=== PATIENT | male | born 1945 | race Caucasian/White ===

== ENCOUNTER 2017-01-02 22:22 | Emergency (ER) | payer MEDICARE, OTHER ==
[~2017-01-02] VITALS: Ht 188 cm; Wt 99.1 kg
[~2017-01-02 22:22] MED LIST: ADVAIR 250/28 DISKU1 IH; ALLEGRA60 M1 PO; ATIVAN 0.50.5 MG/TAB; ATIVAN 0.50.5 MG/TAB PO; ATIVAN 2MG2 MG PO; BENADRYL25 M1 PO; CELEXA10 MG; COMBIVENT INH14.7 GM IH; DULERA1 AR1; ESCITALOPRAM; FLOMAX 0.40.4 MG/CAP; FLOMAX 0.40.4 MG/CAP PO; FLONASE0.05 MG/AC NS; FORADIL IH; HCTZ 25MG25 MG PO; HYTRIN 1MG C1 MG/CAP; HYTRIN10 M1 PO; IPRATROPIUM BROM3 M1 IH; LEXAPRO 10MG10 MG PO; LEXAPRO10 MG PO; LORTAB 5/500 501 TAB PO; NORCO 325 MG-101 TAB PO; NORCO 325 MG-51 TAB; OMNARIS50 MCG/Act; OMNARIS50 MCG/Act NS; PREDNISONE10 MG PO; PREDNISONE20 MG; PRILOSEC 20MG20 MG PO; PROAIR HFA0.09 MG/AC IH; RT SPIRIVA18 MCG; SEPTRA DS 8001 TAB; SEPTRA DS 8001 TAB PO; SINGULAIR 110 MG/TAB; SINGULAIR10 MG PO; SPIRIVA18 MCG IH; TERAZOSIN HCL PO; UNABLE; VICODIN 5/5001 UDTAB PO; ZANTAC150 MG PO
[2017-01-02 22:26] VITALS: BP 148/88
[2017-01-02] MEDS ORDERED: DULCOLAX S10 MG/SUPP RC (23:12)
[2017-01-02] MEDS ORDERED: 00186-0370-20 IH (23:12)
[2017-01-02] MEDS ORDERED: [UNRECOGNIZED DRUG - OTHER] OU (23:14)
[2017-01-02] MEDS ORDERED: VITAMIN D 1001000 IU PO (23:14)
[2017-01-02] MEDS ORDERED: VOLTAREN GEL 1%1 TU TP (23:15)
[2017-01-02] MEDS ORDERED: TAZTIA120 PO (23:18)
[2017-01-02] MEDS ORDERED: SENOKOT S 50 MG1 TAB PO (23:19)
[2017-01-02] MEDS ORDERED: CYMBALTA 30MG30 MG PO (23:20)
[2017-01-02] MEDS ORDERED: FLONASEALLERGY NS (23:21)
[2017-01-02] MEDS ORDERED: ATIVAN2 MG PO (23:22)
[2017-01-02] MEDS ORDERED: PROTONIX 40MG T40 MG PO (23:23)
[2017-01-02] MEDS ORDERED: NARCAN4 MG NS (23:23)
[2017-01-02] MEDS ORDERED: CRESTOR20 MG PO (23:24)
[2017-01-02] MEDS ORDERED: FLOMAX 0.40.4 MG/CAP PO ×2 (23:25→23:52)
[2017-01-02 23:27] LABS: PH 7 (5-8); URINE APPEARANCE Clear; URINE BILIRUBIN Negative (NEGATIVE); URINE BLOOD Negative (NEGATIVE); URINE COLOR Yellow; URINE GLUCOSE Negative (NEGATIVE); URINE KETONE Negative (NEGATIVE); URINE UROBILINOGEN Negative (NEGATIVE)
[2017-01-02] MEDS ORDERED: SPIRIVA RE2.5 MCG/Ac IH (23:29)
[2017-01-02] MEDS ORDERED: DETROL LA4 PO (23:30)
[2017-01-02] MEDS ORDERED: NORCO 325 MG-101 TAB PO (23:32)
[2017-01-02] MEDS ORDERED: PROSCAR 5MG5 MG PO (23:32)
[2017-01-02 23:33] LABS: BASO % 0.4 % (0.0-2.0); EOS # 0.1 (0.0-0.7); EOS % 0.6 % (0-4.0); GRAN # 4.6 (1.4-6.5); LYMPH # 3.1 (1.2-3.4); LYMPH % 36.2 % (20.0-51.0); MEAN CELL VOLUME 88 fl (80.0-100.0); MEAN CORPUSCULAR HEMOGLOBIN 32 pg (27.0-31.0); MEAN CORPUSCULAR HGB CONC 36 g/dl (33.0-37.0); MONO # 0.7 (0.1-0.6); MONO % 8.7 % (1.7-9.3); PLATELET COUNT 237 K/mm3 (130-400); REDCELL DISTRIBUTION WIDTH-CV 12.5 % (11.5-14.5); WHITE BLOOD COUNT 8.5 K/mm3 (4.8-10.8)
[2017-01-02] MEDS ORDERED: HCTZ 25MG TAB25 MG PO (23:33)
[2017-01-02 23:34] LABS: SQUAMOUS EPITHELIAL 0-2 /hpf; URINE RBC None Seen /hpf; URINE WBC None Seen /hpf
[2017-01-02 23:36] LABS: HEMATOCRIT 36.2 % (42.0-52.0)
[2017-01-02 23:53] LABS: ADJUSTED CALCIUM 8.6 mg/dL (8.4-10.2); ALBUMIN 4.1 gm/dL (3.5-5.0); CALCIUM 8.7 mg/dL (8.4-10.2); CREATININE, serum 1.06 mg/dL (0.66-1.25); POTASSIUM 3.1 mmol/L (3.4-5.0); TOTAL PROTEIN 6.7 gm/dL (6.4-8.2)
[2017-01-02 23:54] VITALS: TEMP 98.4
[2017-01-03] VITALS: PULSE 68
== END 2017-01-03 00:04 | disposition home or self-care (01) ==
LOC: COL.ER 22:22
PROVIDERS: Emergency Medicine
DX: N40.1 Benign prostatic hyperplasia with lower urinary tract symptoms (principal); N13.8 Other obstructive and reflux uropathy; J44.9 Chronic obstructive pulmonary disease, unspecified; I10 Essential (primary) hypertension; F41.9 Anxiety disorder, unspecified; F32.9 Major depressive disorder, single episode, unspecified

== ENCOUNTER 2017-12-09 20:20 | Emergency (ER) | payer OTHER ==
[~2017-12-09] VITALS: Ht 188 cm; Wt 99.6 kg
[~2017-12-09 20:20] MED LIST changes: +00186-0370-20 IH; +ATIVAN2 MG PO; +CRESTOR20 MG PO; +CYMBALTA 30MG30 MG PO; +DETROL LA4 PO; +DULCOLAX S10 MG/SUPP RC; +FLONASEALLERGY NS; +HCTZ 25MG TAB25 MG PO; +NARCAN4 MG NS; +PROSCAR 5MG5 MG PO; +PROTONIX 40MG T40 MG PO; +SENOKOT S 50 MG1 TAB PO; +SPIRIVA RE2.5 MCG/Ac IH; +TAZTIA120 PO; +VITAMIN D 1001000 IU PO; +VOLTAREN GEL 1%1 TU TP; +[UNRECOGNIZED DRUG - OTHER] OU
[2017-12-09 20:30] VITALS: TEMP 98.2
[2017-12-09 21:52] VITALS: BP 173/90; PULSE 84
== END 2017-12-09 21:52 | disposition home or self-care (01) ==
LOC: COL.ER 20:20
DX: I10 Essential (primary) hypertension (principal); F43.10 Post-traumatic stress disorder, unspecified; Z87.891 Personal history of nicotine dependence; Z98.890 Other specified postprocedural states

== ENCOUNTER 2018-06-30 15:02 | Emergency (ER) | payer OTHER ==
[~2018-06-30] VITALS: Ht 188 cm; Wt 100.0 kg
[2018-06-30 15:21] VITALS: TEMP 97.6
[2018-06-30 17:45] LABS: BASO % 0.5 % (0.0-2.0); EOS # 0.1 (0.0-0.7); EOS % 0.7 % (0-4.0); GRAN # 5.3 (1.4-6.5); GRAN % 60.8 % (42.2-75.2); HEMATOCRIT 39.3 % (42.0-52.0); HEMOGLOBIN 13.9 g/dl (13.5-18.0); LYMPH # 2.6 (1.2-3.4); LYMPH % 29.7 % (20.0-51.0); MEAN CELL VOLUME 91 fl (80.0-100.0); MEAN CORPUSCULAR HEMOGLOBIN 32 pg (27.0-31.0); MEAN CORPUSCULAR HGB CONC 35 g/dl (33.0-37.0); MONO # 0.7 (0.1-0.6); PLATELET COUNT 301 K/mm3 (130-400); RED BLOOD COUNT 4.32 M/mm3 (4.20-5.60); REDCELL DISTRIBUTION WIDTH-CV 13.2 % (11.5-14.5)
[2018-06-30 17:56] LABS: ALBUMIN 4.1 gm/dL (3.5-5.0); BILIRUBIN,TOTAL 0.5 mg/dL (0.0-1.0); CALCIUM 9.3 mg/dL (8.4-10.2); CREATININE, serum 1.08 mg/dL (0.66-1.25); TOTAL PROTEIN 6.9 gm/dL (6.4-8.2)
[2018-06-30 18:49] LABS: COLLECTION METHOD CLEAN CATCH
[2018-06-30 18:58] LABS: MUCOUS Present /lpf; PH 5 (5-8); SQUAMOUS EPITHELIAL None Seen /hpf; URINE APPEARANCE Clear; URINE BACTERIA None Seen /hpf; URINE BILIRUBIN Negative (NEGATIVE); URINE BLOOD Negative (NEGATIVE); URINE COLOR Yellow; URINE GLUCOSE Negative (NEGATIVE); URINE KETONE 2+ (NEGATIVE); URINE LEUKOCYTE ESTERASE Negative (NEGATIVE); URINE NITRATE Negative (NEGATIVE); URINE PROTEIN(semi-quant) Negative (NEGATIVE); URINE RBC 0-2 /hpf; URINE UROBILINOGEN Negative (NEGATIVE); URINE WBC 0-2 /hpf
[2018-06-30] MEDS ORDERED: MEDROL 4MG DOSPA4 MG PO (19:50)
[2018-06-30] MEDS ORDERED: FLEXERIL 1010 MG/TAB PO ×2 (19:50)
[2018-06-30] MEDS ORDERED: FLEXERIL5 MG PO (19:53)
[2018-06-30 20:03] VITALS: BP 162/91; PULSE 76
== END 2018-06-30 20:03 | disposition home or self-care (01) ==
LOC: COL.ER 15:02
PROVIDERS: Emergency Medicine
DX: M54.16 Radiculopathy, lumbar region (principal); G89.29 Other chronic pain; M54.5 Low back pain; Z87.891 Personal history of nicotine dependence

== ENCOUNTER → 2018-07-17 | Outpatient (REF) ==
[~2018-07-17] MED LIST changes: +FLEXERIL 1010 MG/TAB PO; +FLEXERIL5 MG PO; +MEDROL 4MG DOSPA4 MG PO
== END ==
LOC: ZLAB.WCH 18:01
DX: Z01.89 Encounter for other specified special examinations (principal)

== ENCOUNTER 2018-11-20 15:00 | Outpatient (RCR) | payer OTHER | END 2019-01-07 10:29 | disposition home or self-care (01) | LOC: WSPT 15:00 | DX: Z96.651 Presence of right artificial knee joint (principal) ==

== ENCOUNTER 2019-02-24 07:23 | Day surgery (SDC) | payer OTHER ==
[~2019-02-24] VITALS: Ht 188 cm; Wt 94.7 kg
[2019-02-24 08:14] VITALS: BP 124/77; PULSE 72; TEMP 97.6
--- NOTE | 2019-02-24 08:25 | NUR ---
TO RM AT 0730 CALL LIGHT IN REACH NO ONE WITH PATIENT WILL CALL SON WHEN READY TO BE PICKED UP.
[2019-02-24] MEDS ORDERED: CORRECTIVE LAXAT5 MG PO (08:34)
[2019-02-24] MEDS ORDERED: NEURONTIN400 MG/CAP PO (08:52)
[2019-02-24] MEDS ORDERED: NORCO 325 MG-101 TAB PO ×2 (08:55→11:40)
[2019-02-24] MEDS ORDERED: ATIVAN2 MG PO ×2 (08:57→08:59)
[2019-02-24] MEDS ORDERED: ATIVAN 1MG T1 MG/TAB PO (08:58)
[2019-02-24] MEDS ORDERED: MOBIC15 MG PO (09:00)
[2019-02-24] MEDS ORDERED: MIRALAX238G PO (09:06)
[2019-02-24] MEDS ORDERED: CRESTOR20 MG PO (09:07)
[2019-02-24] MEDS ORDERED: K-DUR20 MEQ PO (09:11)
[2019-02-24] MEDS ORDERED: ENEMEEZ PLUS MIN5 ML RC (09:15)
[2019-02-24] MEDS ORDERED: ICY HOT 7.6%-291 STI TP (09:17)
[2019-02-24 11:22] VITALS: BP 126/72; PULSE 70; TEMP 97.9
--- NOTE | 2019-02-24 11:22 | NUR ---
Patient arrives back from OR alert, denies pain or nausea. Incision is clean/dry/intact. Patient monitor applied, vitals stable. Patient given coffee and muffin. Patient also called his son to update him.
[2019-02-24] MEDS ORDERED: MOTRIN 600600 MG/TAB PO (11:40)
[2019-02-24 11:45] VITALS: BP 123/63; PULSE 76
--- NOTE | 2019-02-24 11:45 | NUR ---
Patient is tolerating muffin and coffee without any nausea. Denies pain. Reports he feels good. Vitals stable.
[2019-02-24 12:00] VITALS: BP 127/66; PULSE 79
[2019-02-24 12:15] VITALS: BP 127/75; PULSE 81
--- NOTE | 2019-02-24 12:15 | NUR ---
Patient reports that he feels good, denies pain or nausea. Patient drank another cup of coffee. Patient reports he is ready to go and his son should be here around 1245 to pick him up.
[2019-02-24 12:30] VITALS: BP 144/62; PULSE 81
--- NOTE | 2019-02-24 12:45 | NUR ---
Dismissal instructions gone over with patient. Patient verbalizes understanding and all questions answered.
--- NOTE | 2019-02-24 12:55 | NUR ---
Patient discharged to home via wheelchair to a private vehicle his son is driving. Patient leaves thanking staff for services.
== END 2019-02-24 12:55 | disposition home or self-care (01) ==
LOC: SDCO 07:23
DX: K40.90 Unilateral inguinal hernia, without obstruction or gangrene, not specified as recurrent (principal); D17.6 Benign lipomatous neoplasm of spermatic cord; J44.9 Chronic obstructive pulmonary disease, unspecified; I10 Essential (primary) hypertension; E78.5 Hyperlipidemia, unspecified; F03.90 Unspecified dementia, unspecified severity, without behavioral disturbance, psychotic disturbance, mood disturbance, and anxiety; K21.9 Gastro-esophageal reflux disease without esophagitis; N40.1 Benign prostatic hyperplasia with lower urinary tract symptoms; R32 Unspecified urinary incontinence; K59.00 Constipation, unspecified; M19.90 Unspecified osteoarthritis, unspecified site; F43.12 Post-traumatic stress disorder, chronic; F17.220 Nicotine dependence, chewing tobacco, uncomplicated; J30.2 Other seasonal allergic rhinitis; J84.10 Pulmonary fibrosis, unspecified; G89.29 Other chronic pain; M54.5 Low back pain; F41.9 Anxiety disorder, unspecified; F32.9 Major depressive disorder, single episode, unspecified; Z79.51 Long term (current) use of inhaled steroids; Z82.49 Family history of ischemic heart disease and other diseases of the circulatory system; Z88.5 Allergy status to narcotic agent; Z85.828 Personal history of other malignant neoplasm of skin
CPT/HCPCS: J0690; J1100; J1885; J2250; J2405; J2704; J2795; J3010; J7120

== ENCOUNTER 2019-02-26 20:27 | Emergency (ER) | payer OTHER, MEDICARE ==
[~2019-02-26] VITALS: Ht 188 cm; Wt 95.5 kg
[~2019-02-26 20:27] MED LIST changes: +ATIVAN 1MG T1 MG/TAB PO; +CORRECTIVE LAXAT5 MG PO; +ENEMEEZ PLUS MIN5 ML RC; +ICY HOT 7.6%-291 STI TP; +K-DUR20 MEQ PO; +MIRALAX238G PO; +MOBIC15 MG PO; +MOTRIN 600600 MG/TAB PO; +NEURONTIN400 MG/CAP PO
[2019-02-26 20:54] VITALS: BP 127/76; TEMP 98
[2019-02-26 21:49] LABS: BASO # 0.1 (0.0-0.2); BASO % 0.4 % (0.0-2.0); EOS # 0.1 (0.0-0.7); EOS % 0.5 % (0-4.0); GRAN # 7.9 (1.4-6.5); GRAN % 63.9 % (42.2-75.2); HEMATOCRIT 42.3 % (42.0-52.0); HEMOGLOBIN 14.1 g/dl (13.5-18.0); LYMPH % 24.5 % (20.0-51.0); MEAN CELL VOLUME 95 fl (80.0-100.0); MEAN CORPUSCULAR HEMOGLOBIN 32 pg (27.0-31.0); MEAN CORPUSCULAR HGB CONC 33 g/dl (33.0-37.0); MEAN PLATELET VOLUME 9.8 fl (7.4-10.4); MONO # 1.3 (0.1-0.6); MONO % 10.3 % (1.7-9.3); PLATELET COUNT 309 K/mm3 (130-400); RED BLOOD COUNT 4.47 M/mm3 (4.20-5.60); REDCELL DISTRIBUTION WIDTH-CV 13.2 % (11.5-14.5)
[2019-02-26 21:53] LABS: COLLECTION METHOD CLEAN CATCH
[2019-02-26 22:02] LABS: PH 6 (5-8); SQUAMOUS EPITHELIAL 0-2 /hpf; URINE APPEARANCE Clear; URINE BACTERIA None Seen /hpf; URINE BILIRUBIN Negative (NEGATIVE); URINE BLOOD Negative (NEGATIVE); URINE COLOR Yellow; URINE GLUCOSE Negative (NEGATIVE); URINE KETONE Negative (NEGATIVE); URINE LEUKOCYTE ESTERASE Negative (NEGATIVE); URINE NITRATE Negative (NEGATIVE); URINE PROTEIN(semi-quant) Negative (NEGATIVE); URINE RBC 0-2 /hpf; URINE UROBILINOGEN Negative (NEGATIVE)
[2019-02-26 22:06] LABS: ALBUMIN 4.3 gm/dL (3.5-5.0); BILIRUBIN,TOTAL 0.6 mg/dL (0.0-1.0); C-REACTIVE PROTEIN 3.8 mg/dL (0.0-0.9); CALCIUM 9.6 mg/dL (8.4-10.2); CREATININE, serum 1.02 (0.66-1.25); POTASSIUM 3.5 mmol/L (3.4-5.0); TOTAL PROTEIN 7.6 gm/dL (6.4-8.2)
[2019-02-27 01:39] VITALS: PULSE 78
== END 2019-02-27 01:37 | disposition home or self-care (01) ==
LOC: COL.ER 20:27
PROVIDERS: Emergency Medicine
DX: K59.00 Constipation, unspecified (principal); Z98.890 Other specified postprocedural states; Z79.51 Long term (current) use of inhaled steroids
CPT/HCPCS: J2405; J7030

== ENCOUNTER 2019-03-20 13:21 | Day surgery (SDC) | payer OTHER, MEDICARE ==
[~2019-03-20] VITALS: Ht 188 cm; Wt 93.2 kg
[~2019-03-20 13:21] MED LIST changes: +TEARS-ARTIFICIA15 ML OU; -[UNRECOGNIZED DRUG - OTHER] OU
[2019-03-20 14:25] VITALS: BP 146/80; PULSE 70; TEMP 97.3
[2019-03-20] MEDS ORDERED: PROTONIX 40MG T40 MG PO (15:20)
[2019-03-20 15:25] VITALS: BP 140/74; PULSE 73; TEMP 97.6
--- NOTE | 2019-03-20 15:25 | NUR ---
Patient brought back to [facility]. Alert and oriented, ambulated to chair without difficulty. Denies any nausea or pain. Vital signs stable. States he would like a muffin and juice. Tolerating well. All safety maintained, will continue to monitor.
[2019-03-20 15:40] VITALS: BP 134/85; PULSE 69
--- NOTE | 2019-03-20 15:40 | NUR ---
Vital signs stable, tolerating food and drink well. Will continue to monitor.
--- NOTE | 2019-03-20 15:49 | NUR ---
Patient ambulated to bathroom without difficulty. States he feels ready to go home soon. Will continue to monitor.
[2019-03-20 15:55] VITALS: BP 131/71; PULSE 67
--- NOTE | 2019-03-20 15:55 | NUR ---
Discharge instructions reviewed with patient, verbalized understanding. Perscription in hand. Patient to get dressed at this time.
[2019-03-20 15:59] VITALS: BP 123/78; PULSE 61
--- NOTE | 2019-03-20 16:10 | NUR ---
Patient brought down to lobby, ambulated without difficulty. To be driven home by son.
== END 2019-03-20 16:10 | disposition home or self-care (01) ==
LOC: SDCO 13:21
DX: D12.3 Benign neoplasm of transverse colon (principal); K63.5 Polyp of colon; K63.89 Other specified diseases of intestine; K21.0 Gastro-esophageal reflux disease with esophagitis; I10 Essential (primary) hypertension; J44.9 Chronic obstructive pulmonary disease, unspecified; J84.10 Pulmonary fibrosis, unspecified; M25.569 Pain in unspecified knee; G89.29 Other chronic pain; F32.9 Major depressive disorder, single episode, unspecified; F41.9 Anxiety disorder, unspecified; Z85.828 Personal history of other malignant neoplasm of skin; F17.210 Nicotine dependence, cigarettes, uncomplicated; Z88.5 Allergy status to narcotic agent
CPT/HCPCS: J2704; J3010; J7120

== ENCOUNTER 2021-07-05 12:36 | Day surgery (SDC) | payer OTHER ==
[2021-07-05] VITALS (10 sets, daily range): BP systolic 129–158; BP diastolic 67–81; PULSE 48–76; TEMP 97.6–98.2
[~2021-07-05] VITALS: Ht 188 cm; Wt 86.5 kg
[2021-07-05] MEDS ORDERED: HORIZANT300 MG PO (14:13)
[2021-07-05] MEDS ORDERED: PROAIR HFA0.09 MG/AC IH (14:30)
[2021-07-05] MEDS ORDERED: [UNRECOGNIZED DRUG - REMARK] (14:31)
[2021-07-05] MEDS ORDERED: NAMENDA (14:32)
--- NOTE | 2021-07-05 17:27 | NUR ---
PT TO ROOM 344 PER BED WITH REPORT FROM MARIANA ARREDONDO PACU @3505. HILARIO CATH WITH CLEAR FLUID IN CATH BAG, CBI RUNNING WITH 6384 CREDIT. IV TO PUMP PER ORDERS. HILARIO CATHETER TO STATLOCK DD. VSS, PT IS A/O X3.
[2021-07-05] MEDS ORDERED: NAMENDA 10MG TA10 MG PO (20:41)
[2021-07-05] MEDS ORDERED: REMERON45 MG PO (20:41)
--- NOTE | 2021-07-05 21:00 | NUR ---
PT MEDICATED WITH HS MEDS. IS ALERT AND ORIENTED X4. HAS HILARIO TO BSD WITH PINK URINE, CBI AT MODERATE RATE. SL TO RT HAND, IVF CAPPED. HILARIO CARES PROVIDED AT THIS TIME.
[2021-07-06 04:12] VITALS: BP 128/73; PULSE 71; TEMP 98.3
--- NOTE | 2021-07-06 06:00 | NUR ---
HILARIO WITH CBI AT SLOW RATE, URINE PINK. PT DENIES NEEDS AT THIS TIME.
[2021-07-06 07:26] VITALS: BP 137/77; PULSE 70; TEMP 97.5
--- NOTE | 2021-07-06 08:00 | NUR ---
PT IS ALERT AND ORIENTED THIS AM. HE IS SITTING UP WATCHING TV AND HAS ORDERED BREAKFAST. HE SAYS HE "IS READY TO GET OUT OF HERE." THIS STUDENT AND ARNULFO THOMPSON EXPLAINED THE PRIME/PULL/SIX CUP METHOD TO PT. STATES THAT HE UNDERSTANDS. RED TINGED, CLEAR URINE OBSERVED IN HILARIO BAG. MORNING ASSESSMENT COMPLETE AND MORNING MEDICATIONS GIVEN. PT HAS NO OTHER NEEDS AT THIS TIME. CALL LIGHT AND BELONGINGS WITHIN REACH.
--- NOTE | 2021-07-06 10:33 | NUR ---
JESE met with the patient to discuss discharge plan. The patient lives in [place]. He states that his daughter, Tata (ph#[phone]), just moved back from [place] and is staying with him now. He reports independence with ADLs and does not have any DME. The patient's primary care provider is Chelsea [facility] at the [facility] and he receives his medications from the [facility]. He reports no difficulties obtaining his meds. The patient does not have a DPOA-HC in EMR, but he states that he does have one completed and that he designated Tata. The patient's is and he has three children: Tata, Sanya, and Leonard. The patient plans to return home with his daughter upon discharge. No additional needs at this time. *Discharge plan: home with daughter*
[2021-07-06 12:05] VITALS: BP 146/78; PULSE 64; TEMP 97.3
--- NOTE | 2021-07-06 14:09 | NUR ---
PATIENT HAS COMPLETED 6 CUP ROUTINE AND MEET DISCHARGE CRITERIA. [employer] STUDENT DC'D IV AND COVERED SITE WITH DAVONTE & KI. GAVE DISCHARGE INSTRUCTIONS AND DISCUSSED F/U APT. ANSWERED QUESTIONS/CONCERNS. PATIENT CALLED HIS RIDE.
--- NOTE | 2021-07-06 14:39 | NUR ---
PATIENT'S SON HERE. PATIENT ESCORTED VIA AMBULATORY TO PERSONAL VEHICLE. PATIENT DISCHARGED.
== END 2021-07-06 14:40 | disposition home or self-care (01) ==
LOC: SDCO 12:36 → SURG 17:00 → SDCO 07-06 14:40
DX: N40.1 Benign prostatic hyperplasia with lower urinary tract symptoms (principal); R35.0 Frequency of micturition; N48.6 Induration penis plastica; N52.1 Erectile dysfunction due to diseases classified elsewhere; E78.00 Pure hypercholesterolemia, unspecified; I63.9 Cerebral infarction, unspecified; I10 Essential (primary) hypertension; E78.5 Hyperlipidemia, unspecified; J44.9 Chronic obstructive pulmonary disease, unspecified; J84.10 Pulmonary fibrosis, unspecified; K21.9 Gastro-esophageal reflux disease without esophagitis; G89.29 Other chronic pain; M54.9 Dorsalgia, unspecified; F43.10 Post-traumatic stress disorder, unspecified; F17.220 Nicotine dependence, chewing tobacco, uncomplicated; Z85.828 Personal history of other malignant neoplasm of skin; Z79.899 Other long term (current) drug therapy
CPT/HCPCS: OP; J7120

== ENCOUNTER 2021-11-27 11:46 | Emergency (ER) | payer OTHER, MEDICARE ==
[~2021-11-27] VITALS: Ht 193 cm; Wt 79.5 kg
[~2021-11-27 11:46] MED LIST changes: +HORIZANT300 MG PO; +NAMENDA; +NAMENDA 10MG TA10 MG PO; +REMERON45 MG PO; +[UNRECOGNIZED DRUG - REMARK]
[2021-11-27 11:57] VITALS: TEMP 97.9
[2021-11-27 12:49] LABS: BASO # 0.1 K/mm3 (0.0-0.2); BASO % 0.4 % (0.0-2.0); EOS # 0.2 K/mm3 (0.0-0.7); EOS % 1.8 % (0.0-4.0); GRAN # 8.5 K/mm3 (1.4-6.5); GRAN % 71.1 % (42.2-75.2); HEMATOCRIT 40.8 % (42.0-52.0); HEMOGLOBIN 14.1 g/dl (13.5-18.0); LYMPH # 2.1 K/mm3 (1.2-3.4); LYMPH % 17.7 % (20.0-51.0); MEAN CELL VOLUME 92 fl (80.0-100.0); MEAN CORPUSCULAR HEMOGLOBIN 32 pg (27-31); MEAN CORPUSCULAR HGB CONC 35 g/dl (33.0-37.0); MEAN PLATELET VOLUME 9.2 fl (7.4-10.4); MONO % 8.7 % (1.7-9.3); PLATELET COUNT 286 K/mm3 (130-400); RED BLOOD COUNT 4.46 M/mm3 (4.20-5.60); REDCELL DISTRIBUTION WIDTH-CV 13.2 % (11.5-14.5)
[2021-11-27 13:06] LABS: ALBUMIN 3.6 gm/dL (3.4-4.8); BILIRUBIN,TOTAL 0.6 mg/dL (0.2-1.2); CALCIUM 9.2 mg/dL (8.4-10.2); CREATININE, serum 1.12 mg/dL (0.72-1.25); POTASSIUM 3.7 mmol/L (3.5-4.5); TOTAL PROTEIN 6.7 gm/dL (6.2-8.1)
[2021-11-27 13:11] LABS: TROPONIN-I 0.014 ng/mL (0.00-0.033)
[2021-11-27] MEDS ORDERED: PREDNISONE20 MG PO (15:17)
[2021-11-27] MEDS ORDERED: DOXYCYCLINE 10100 MG PO (15:17)
[2021-11-27 15:20] VITALS: BP 127/88; PULSE 60
== END 2021-11-27 15:20 | disposition home or self-care (01) ==
LOC: COL.ER 11:46
PROVIDERS: Nurse Practitioner
DX: J44.1 Chronic obstructive pulmonary disease with (acute) exacerbation (principal); B02.9 Zoster without complications; Z87.891 Personal history of nicotine dependence; Z20.822 Contact with and (suspected) exposure to COVID-19
CPT/HCPCS: J2930

== ENCOUNTER 2022-04-10 07:16 | Day surgery (SDC) | payer OTHER ==
--- NOTE | 2022-03-27 08:56 | NUR ---
Sherri from DR office called to inform RN that PT is to recieve an EGD and Colonoscopy today per refferal; provider aware and new orders are to be sent.
[~2022-04-10] VITALS: Ht 185.4 cm; Wt 82.4 kg
[~2022-04-10 07:16] MED LIST changes: +BENADRYL25 M2 PO; +DOXYCYCLINE 10100 MG PO; -HCTZ 25MG TAB25 MG PO; +HYDRODIURIL50 MG PO; +PREDNISONE20 MG PO; +PRILOSEC10 MG PO; +RT ADVAIR 228 DISKUS IH; +RT SPIRIVA18 MCG IH; +SINGULAIR 110 MG/TAB PO
[2022-04-10] MEDS ORDERED: GENTLE LAXATIVE10 MG RC (07:58)
[2022-04-10] MEDS ORDERED: GENTLE LAXATIVE5 MG PO (07:58)
[2022-04-10] MEDS ORDERED: SENEXON-S 50-81 EACH PO (08:00)
[2022-04-10] MEDS ORDERED: RT ADVAIR 528 DISKUS IH (08:01)
[2022-04-10] MEDS ORDERED: CYMBALTA 30MG30 MG PO ×2 (08:01→08:10)
[2022-04-10] MEDS ORDERED: ARMONAIR DIGIH55 MCG IH (08:02)
[2022-04-10] MEDS ORDERED: NEURONTIN400 MG/CAP PO (08:03)
[2022-04-10] MEDS ORDERED: HCTZ 25MG TAB25 MG PO (08:03)
[2022-04-10] MEDS ORDERED: REMERON45 MG PO (08:04)
[2022-04-10] MEDS ORDERED: ATIVAN 1MG T1 MG/TAB PO (08:04)
[2022-04-10] MEDS ORDERED: CRESTOR20 MG PO (08:05)
[2022-04-10] MEDS ORDERED: MIRALAX510G PO (08:05)
[2022-04-10] MEDS ORDERED: GEMTESA75 MG PO (08:06)
[2022-04-10] MEDS ORDERED: EDEX INTRACAVER (08:07)
[2022-04-10] MEDS ORDERED: REFRESH TEARS 330 ML OP (08:08)
[2022-04-10] MEDS ORDERED: COREG 25MG25 MG/TAB PO (08:08)
[2022-04-10] MEDS ORDERED: CLOBETASOL TP (08:10)
[2022-04-10] MEDS ORDERED: CVS SPECTRAVIT1 EA15 PO (08:11)
[2022-04-10] MEDS ORDERED: IBU600 MG PO (08:11)
[2022-04-10 08:13] VITALS: BP 134/72; PULSE 56; TEMP 97.5
[2022-04-10 09:25] VITALS: BP 131/60; PULSE 64; TEMP 97.5
[2022-04-10 09:40] VITALS: BP 115/58; PULSE 63
--- NOTE | 2022-04-10 09:52 | NUR ---
0925 - PT arrives from procedure and was settled by Cayla RN. Verbal report then obtained. 0940 - PT has finished snack and drink; requested additional and RN provided. VSS. PT denies pain and nausea. Call dumont is within reach if needed. PT expressed desire to be discharged and ride home was contacted per PT request.
[2022-04-10 09:55] VITALS: BP 128/65; PULSE 68
--- NOTE | 2022-04-10 10:13 | NUR ---
0955 - VSS. IV discontinued. Catheter tip intact. Pressure bandage applied. NO redness or swelling noted. DC instructions and educational material reveiwed w/ PT who verbalized understanding and signed the realted paperwork. Questions answered to PT satisfaction. PT refused RN assistance changing into personal belongings; call dumont is within reach if needed. Return to work release provided to PT.
--- NOTE | 2022-04-10 10:29 | NUR ---
1020 - PT dismissed from endo via wheelchair by Mireille ARREDONDO. PT has personal belongings and DC packet; PT was transferred into the care of Tata, who is driving private car.
== END 2022-04-10 10:25 | disposition home or self-care (01) ==
LOC: SDCO 07:16
DX: Z12.11 Encounter for screening for malignant neoplasm of colon (principal); D12.3 Benign neoplasm of transverse colon; D12.4 Benign neoplasm of descending colon; K29.50 Unspecified chronic gastritis without bleeding; K64.0 First degree hemorrhoids; K63.89 Other specified diseases of intestine; Z87.891 Personal history of nicotine dependence
CPT/HCPCS: J2704; J7030

== ENCOUNTER 2022-09-27 14:42 | Emergency (ER) | payer OTHER, MEDICARE ==
[~2022-09-27] VITALS: Ht 188 cm; Wt 80.9 kg
[~2022-09-27 14:42] MED LIST changes: +ARMONAIR DIGIH55 MCG IH; +ASPIRIN E.C. 8181 MG PO; +COREG 25MG25 MG/TAB PO; +CVS SPECTRAVIT1 EA15 PO; +DULCOLAX TAB5 MG PO; +EDEX INTRACAVER; +GEMTESA75 MG PO; +GENTLE LAXATIVE10 MG RC; +GENTLE LAXATIVE5 MG PO; +HCTZ 25MG TAB25 MG PO; +IBU600 MG PO; +IMDUR 30MG30 MG/TAB PO; +LIPITOR 80MG80 MG PO; +MIRALAX510G PO; +PLAVIX 75MG TAB75 MG PO; +POLYMYXIN B/TRIMETH OS; +REFRESH TEARS 330 ML OP; +RT ADVAIR 528 DISKUS IH; +SENEXON-S 50-81 EACH PO; +TEMOVATE0.05% TP; +ZITHROMAX TRI-500 MG PO
[2022-09-27 14:51] VITALS: TEMP 98.3
[2022-09-27 15:28] LABS: BASO # 0.1 K/mm3 (0.0-0.2); BASO % 1.2 % (0.0-2.0); EOS # 0.7 K/mm3 (0.0-0.7); EOS % 8.9 % (0.0-4.0); GRAN # 4.7 K/mm3 (1.4-6.5); GRAN % 61.5 % (42.2-75.2); HEMOGLOBIN 10.4 g/dl (13.5-18.0); LYMPH # 1.4 K/mm3 (1.2-3.4); MEAN CELL VOLUME 94 fl (80.0-100.0); MEAN CORPUSCULAR HEMOGLOBIN 31 pg (27-31); MEAN CORPUSCULAR HGB CONC 33 g/dl (33.0-37.0); MEAN PLATELET VOLUME 8.6 fl (7.4-10.4); MONO # 0.7 K/mm3 (0.1-0.6); MONO % 9.1 % (1.7-9.3); PLATELET COUNT 537 K/mm3 (130-400); RED BLOOD COUNT 3.36 M/mm3 (4.20-5.60); REDCELL DISTRIBUTION WIDTH-CV 14.5 % (11.5-14.5)
[2022-09-27 15:30] LABS: HEMATOCRIT 31.4 % (42.0-52.0)
[2022-09-27 15:43] LABS: ALBUMIN 3.1 gm/dL (3.4-4.8); BILIRUBIN,TOTAL 0.4 mg/dL (0.2-1.2); C-REACTIVE PROTEIN 0.79 mg/dL (0.00-0.50); CREATININE, serum 1.29 mg/dL (0.72-1.25); MAGNESIUM 1.9 mg/dL (1.6-2.6); POTASSIUM 3.8 mmol/L (3.5-4.5); TOTAL PROTEIN 6.4 gm/dL (6.2-8.1)
[2022-09-27 16:45] LABS: COLLECTION METHOD CLEAN CATCH
[2022-09-27 16:57] LABS: URINE APPEARANCE Clear (CLEAR/HAZY); URINE BLOOD Negative (NEGATIVE); URINE COLOR Yellow (YELLOW); URINE GLUCOSE Negative (NEGATIVE); URINE KETONE Negative (NEGATIVE); URINE NITRATE Negative (NEGATIVE); URINE PROTEIN(semi-quant) Negative (NEGATIVE); URINE UROBILINOGEN 0.2 E.U/dL (0.2-1.0)
[2022-09-27 17:16] LABS: SQUAMOUS EPITHELIAL None Seen /hpf (0-10); URINE BACTERIA None Seen /hpf (NONE SEEN); URINE RBC None Seen /hpf (0-2)
[2022-09-27 17:56] VITALS: BP 152/83; PULSE 78
== END 2022-09-27 18:06 | disposition home or self-care (01) ==
LOC: COL.ER 14:42
PROVIDERS: Emergency Medicine
DX: S22.32XA Fracture of one rib, left side, initial encounter for closed fracture (principal); S41.102A Unspecified open wound of left upper arm, initial encounter; R79.89 Other specified abnormal findings of blood chemistry; Z28.310 Unvaccinated for COVID-19; W18.30XA Fall on same level, unspecified, initial encounter; Y93.01 Activity, walking, marching and hiking
CPT/HCPCS: J1885; J7040

== ENCOUNTER 2022-12-18 15:04 | Emergency (ER) | payer OTHER, MEDICARE ==
[~2022-12-18] VITALS: Ht 188 cm; Wt 83.2 kg
[2022-12-18 15:21] VITALS: TEMP 98.1
[2022-12-18 16:20] VITALS: BP 143/79; PULSE 75
== END 2022-12-18 16:20 | disposition home or self-care (01) ==
LOC: COL.ER 15:04
DX: S61.211A Laceration without foreign body of left index finger without damage to nail, initial encounter (principal); Z79.02 Long term (current) use of antithrombotics/antiplatelets; Z79.82 Long term (current) use of aspirin; W22.8XXA Striking against or struck by other objects, initial encounter

== ENCOUNTER 2023-05-06 12:12 | Emergency (ER) | payer OTHER, MEDICARE ==
[~2023-05-06] VITALS: Ht 188 cm; Wt 86.4 kg
[2023-05-06 12:19] VITALS: BP 177/81; TEMP 98.3
[2023-05-06] MEDS ORDERED: AMOXICILLIN 8751 TAB PO (12:43)
[2023-05-06 13:02] VITALS: PULSE 62
== END 2023-05-06 13:07 | disposition home or self-care (01) ==
LOC: COL.ER 12:12
DX: L03.012 Cellulitis of left finger (principal)

== ENCOUNTER 2023-08-22 07:16 | Day surgery (SDC) | payer OTHER, MEDICARE ==
[~2023-08-22] VITALS: Ht 188 cm; Wt 103.5 kg
[~2023-08-22 07:16] MED LIST changes: +AMOXICILLIN 8751 TAB PO; -GEMTESA75 MG PO; -IBU600 MG PO; +NEURONTIN300 MG/CAP PO; +PROTONIX20 MG PO; +ZITHROMAX 250M250 MG PO
[2023-08-22 08:12] VITALS: BP 151/72; PULSE 64; TEMP 97.9
[2023-08-22] MEDS ORDERED: PACERONE200 MG PO (08:29)
[2023-08-22] MEDS ORDERED: ASPIRIN 81M81 MG/TA2 PO (08:29)
[2023-08-22] MEDS ORDERED: LIPITOR 80MG80 MG PO (08:30)
[2023-08-22] MEDS ORDERED: 00186-0370-20 IH (08:37)
[2023-08-22] MEDS ORDERED: REFRESH TEARS 330 ML OP (08:37)
[2023-08-22] MEDS ORDERED: OMNARIS50 MCG/Act NS (08:38)
[2023-08-22] MEDS ORDERED: PLAVIX 75MG TAB75 MG PO (08:38)
[2023-08-22] MEDS ORDERED: VOLTAREN GEL 1%1 TU TP (08:39)
[2023-08-22] MEDS ORDERED: CYMBALTA 30MG30 MG PO (08:40)
[2023-08-22] MEDS ORDERED: GEMTESA75 MG PO (08:56)
[2023-08-22] MEDS ORDERED: IBU600 MG PO (08:56)
[2023-08-22 09:24] VITALS: BP 150/85; PULSE 66
--- NOTE | 2023-08-22 10:42 | NUR ---
Discharge instructions given to pt.Pt verbalizes understanding.Pt escorted out by this nurse.
== END 2023-08-22 10:42 ==
LOC: COL.CAR 07:16
DX: I48.0 Paroxysmal atrial fibrillation (principal); I10 Essential (primary) hypertension; I25.112 Atherosclerotic heart disease of native coronary artery with refractory angina pectoris; E78.2 Mixed hyperlipidemia; Z87.891 Personal history of nicotine dependence; Z79.82 Long term (current) use of aspirin; Z79.899 Other long term (current) drug therapy
CPT/HCPCS: 27886; C1764

== ENCOUNTER → 2023-10-08 | Outpatient (CLI) | payer OTHER ==
[~2023-10-08] MED LIST changes: +ASPIRIN 81M81 MG/TA2 PO; +GEMTESA75 MG PO; +IBU600 MG PO; +PACERONE200 MG PO
== END ==
LOC: COL.RAD 09:57
DX: Z01.89 Encounter for other specified special examinations (principal); M75.122 Complete rotator cuff tear or rupture of left shoulder, not specified as traumatic; M75.52 Bursitis of left shoulder

== ENCOUNTER → 2024-04-09 | Outpatient (CLI) | payer OTHER ==
[~2024-04-09] MED LIST changes: +DERMASARRA TP; +DUPIXENT P300 MG/2 M SQ; +MULTI VITAMINS1 TAB PO; +NORVASC 5MG5 MG/TAB PO; +REMERON 15M15 MG/TA1 PO; +TRIAMCINOLONE AC0.13 TOP
== END ==
LOC: COL.RAD 08:32
DX: Z01.89 Encounter for other specified special examinations (principal); M47.812 Spondylosis without myelopathy or radiculopathy, cervical region

== ENCOUNTER 2024-05-04 01:27 | Emergency (ER) | payer OTHER ==
[~2024-05-04] VITALS: Ht 188 cm; Wt 85.9 kg
[2024-05-04 02:18] LABS: BASO # 0.1 K/mm3 (0.0-0.2); BASO % 0.7 % (0.0-2.0); EOS # 0.2 K/mm3 (0.0-0.7); EOS % 2.3 % (0.0-4.0); GRAN # 3.4 K/mm3 (1.4-6.5); GRAN % 45.1 % (42.2-75.2); HEMATOCRIT 39.1 % (42.0-52.0); LYMPH # 3.1 K/mm3 (1.2-3.4); LYMPH % 41.3 % (20.0-51.0); MEAN CELL VOLUME 96 fl (80.0-100.0); MEAN CORPUSCULAR HEMOGLOBIN 32 pg (27-31); MEAN CORPUSCULAR HGB CONC 33 g/dl (33.0-37.0); MEAN PLATELET VOLUME 10.1 fl (7.4-10.4); MONO # 0.8 K/mm3 (0.1-0.6); MONO % 10.3 % (1.7-9.3); PLATELET COUNT 269 K/mm3 (130-400); RED BLOOD COUNT 4.08 M/mm3 (4.20-5.60); REDCELL DISTRIBUTION WIDTH-CV 13.4 % (11.5-14.5)
[2024-05-04 02:26] LABS: ALANINE AMINOTRANSFERASE 15 U/L (0-55); ALBUMIN 3.5 g/dL (3.4-4.8); ALKALINE PHOSPHATASE 76 U/L (40-150); ANION GAP 12 mmol/L (7-16); AST,SGOT 20 U/L (5-34); BILIRUBIN,TOTAL 0.2 mg/dL (0.2-1.2); BLOOD UREA NITROGEN 17 mg/dL (8-26); CALCIUM 8.4 mg/dL (8.4-10.2); CHLORIDE 109 mEq/L (98-107); CREATININE, serum 1.65 mg/dL (0.72-1.25); GLUCOSE 117 mg/dL (70-99); POTASSIUM 3.8 mEq/L (3.5-4.5); SODIUM 144 mEq/L (136-145); TOTAL PROTEIN 6.5 g/dl (6.2-8.1)
[2024-05-04 02:37] LABS: TROPONIN-I < 0.010 ng/mL (0.00-0.033)
[2024-05-04 04:56] VITALS: BP 140/75; PULSE 82; TEMP 98.4
== END 2024-05-04 04:56 | disposition home or self-care (01) ==
LOC: COL.ER 01:27
PROVIDERS: Emergency Medicine
DX: R60.0 Localized edema (principal); I45.10 Unspecified right bundle-branch block

== ENCOUNTER → 2024-06-10 | Outpatient (REF) | payer OTHER | LOC: ZCOL.LAB 16:27 | DX: Z01.89 Encounter for other specified special examinations (principal) ==